=== PATIENT | female | born 1940 | race Caucasian/White ===

== ENCOUNTER 2016-10-31 06:15 | Day surgery (SDC) | payer OTHER ==
[2016-10-27 13:04] VITALS: BMI 28.3
--- NOTE | 2016-10-30 19:03 | HP ---
[facility] - Chief Complaint Chief Complaint: This patient is admitted for the investigation and removal of a uterine polyp. History of Present Illness: This patient c/o pelvic pain and was found to have a uterine polyp on sonogram examination. History Source: Patient - Past Medical History Allergies/Adverse Reactions: Allergies Allergy/AdvReac Type Severity Reaction Status Date / Time No Known Allergies Allergy Verified 10/27/16 13:04 REGISTERED NURSE PRACTITIONER: No: Alzheimer's, CVA, Dementia, Migraine, Multiple Sclerosis, Peripheral Neuropathy, Parkinson's, Seizure, Syncope, TIA, Vertigo, Other Cardiovascular: Yes: HTN, Hyperlipdemia. No: AFIB, Aneurysm, Aortic Insufficiency, Aortic Stenosis, CAD, CHF, Deep Vein Thrombosis, DE, Mitral Insufficiency, Mitral Stenosis, Murmur, Pulmonary Hypertension, Other Pulmonary: No: Asthma, Bronchitis, Cancer, COPD, O2 Dependent, Pneumonia, Previously Intubated, Pulmonary Embolus, Pulmonary Fibrosis, Sleep Apnea, Other Gastrointestinal: No: Ascites, Cancer, Constipation, Crohn's Disease, Diverticulitis, Diverticulosis, Esophageal Varices, Gastritis, GERD, GI Bleed, Hemorrhoids, Hiatal Hernia, Inflamatory Bowel Disease, Irritable Bowel Disease, Pancreatitis, Peptic Ulcer Disease, Ulcerative Colitis, Other Hepatobiliary: No: Cirrhosis, Cholelithiasis, Cholecystitis, Choledocholithiasis , Hepatitis A, Hepatitis B, Hepatitis C, Other Renal/: No: Renal Failure, Renal Inusuff, BPH, Cancer, Hematuria, Hemodialysis , Neurogenic Bladder, Renal Calculi, UTI, Other Reproductive: No: Ectopic , Endometriosis, Fibroids, PID, Polycystic Ovary Syndrome, Postmenopausal, Other ...: No ...: 3 ...Para: 3 Heme/Onc: No: Anemia, B12 Deficiency, Bleeding Disorder, Cancer, Current Chemotherapy, Current Radiation Therapy, Hemochromatosis, Hypercoaguable State, Myeloproliferative Synd, Sickle Cell Disease, Sickle Cell Trait, Thrombocytopenia, Other Infectious Disease: No: AIDS, C-Diff, Herpes Zoster, HIV, MRSA, STD's, Tuberculosis, VREF, Other Musculoskeletal: No: Bursitis, Chronic low back pain, Hemiparesis, Hemiplegia, Osteoarthritis, Paraplegia, Other Rheumatology: No: Fibromyalgia, Gout, Lupus, Rheumatoid Arthritis, Sarcoidosis, Vasculitis, Other ENT: No: Allergic Rhinitis, Sinusitis, Other Endocrine: No: Dominic's Disease, Megan's Disease, Diabetes Insipidus, Diabetes Mellitus, Hyperparathyroidism, Hyperthyroidism, Hypothyroidism, Osteopenia, SIADH, Other Dermatology: No: Basal Cell, Cellulitis, Eczema, Melanoma, Psoriasis, Squamous Cell, Other - Current Medications Current Medications: Home Medications Medication Instructions Recorded Amlodipine Besylate 5 mg PO DAILY 10/27/16 Aspirin [ASA -] 81 mg PO DAILY 10/27/16 Metoprolol Succinate [Toprol Xl] 50 mg PO HS 10/27/16 Simvastatin 40 mg PO HS 10/27/16 Valsartan 320 mg PO DAILY 10/27/16 Satellite Physical Exam - Physical Examination General Appearance: Well Nourished, Well Developed, Alert & Oriented x3 ENT: Clear, No Discharge, No masses Lung: Clear to auscultation Heart: Regular rate & rhythm, Normal S1, Normal S2 Breasts: Soft, Non-Tender, No masses bilaterally Abdomen: Soft, No tenderness, No CVA Extremities: No edema, No tenderness/swelling Pelvic Exam: Within normal limits External Genitalia, Within normal limits Vagina, Within normal limits Cervix, Within normal limits Uterus, Within normal limits [facility]: Intact, Alert, Oriented Satellite Impression/Plan - Impression/Plan Impression: polyp of uterus Operative Procedure: Hysteroscopy with polypectomy and D/C Date to be Performed: 10/31/16
[2016-10-31 06:33] VITALS: TEMP 97.7
[2016-10-31] MEDS ORDERED: PROPOFOL 20 ML ONE (07:21)
[2016-10-31] MEDS ORDERED: MIDAZOLAM HCL 2 MG/2 ML SINGLE DOSE VIAL ONE (07:21)
[2016-10-31] MEDS ORDERED: SUCCINYLCHOLINE CHLORIDE 200 MG/10 ML VIAL ONE (07:21)
[2016-10-31] MEDS ORDERED: DEXAMETHASONE SOD PHOSPHATE 4 MG/1 ML VIAL ONE (07:49)
[2016-10-31] MEDS ORDERED: KETOROLAC TROMETHAMINE 30 MG/1 ML VIAL ONE (07:57)
[2016-10-31] MEDS ORDERED: DESFLURANE GAS 240 ML BOTTLE IH ONE (08:05)
[2016-10-31] MEDS ORDERED: LACTATED RINGERS SOLUTION 1,000 ML IV SCH (08:15)
[2016-10-31] MEDS ORDERED: oxyCODONE HCL 5 MG TABLET PO PRN (08:15)
[2016-10-31] MEDS ORDERED: ONDANSETRON 4 MG/2 ML VIAL IVPUSH PRN (08:15)
[2016-10-31 10:55] VITALS: BP 149/73; PULSE 74
--- NOTE | 2016-10-31 16:21 | OP ---
DATE OF OPERATION: 10/31/2016 PREOPERATIVE DIAGNOSIS: Endometrial polyp. DESCRIPTION OF PROCEDURE: The patient was brought to the operating room, placed in the supine position, given fractional anesthesia by the crts, placed in the lithotomy position, prepped and draped in the usual sterile manner for D&C hysteroscopy. The patient was examined. Uterus was noted to be post menopausal in size and small post menopausal uterus, adnexa negative. The anterior lip of the cervix was grasped with a tenaculum after a speculum was placed into the vagina. The uterus was sounded to 2.5 inches. The cervix was dilated with Tyler dilators. A hysteroscopy was performed. The inside of the endometrium appeared atrophic. There were no signs of any fibroids or polyps. A D&C was carried out using a small curet. A small amount of tissue was obtained for analysis. The patient tolerated the procedure well. Hemostasis was excellent. The estimated blood loss was 2 mL. After this was accomplished, the patient was then transferred to the recovery room. The patient also had an ECC, endocervical curettage, and after that was done, the patient was then referred to the recovery room in good condition. Vital signs were stable. Hemostasis was good. JOSE HARRISON M.D. [id number]
--- NOTE | 2016-11-01 11:45 | PATH ---
Surgical Pathology Report Patient Name: CABRERA WANG [facility]. Rec. #: [id number] /Age/Gender: 1940 (Age: 75) / F Account: [id number] Location: [facility] SUR[facility]ICAL Taken: 10/31/2016 Received: 10/31/2016 Reported: 11/01/2016 Physicians: Sandip De La Torre M.D. Specimen(s) Received A: ENDOMETRIAL TISSUE B: ENDOCERVICAL TISSUE Clinical History Possible polyp Final Diagnosis A. ENDOMETRIAL TISSUE, CURETTAGE: ENDOMETRIAL POLYP. BACKGROUND SCANT FRAGMENTS OF ATROPHIC ENDOMETRIUM. B. ENDOCERVICAL TISSUE, CURETTAGE: FRAGMENTS OF BENIGN ENDOCERVICAL TISSUE. FRAGMENTS OF BENIGN SQUAMOUS EPITHELIUM. Electronically Signed Jamarcus Cloud M.D. Gross Description A. Received in formalin labeled "endometrial tissue" is a 0.6 x 0.5 x 0.1 cm aggregate of anderson-pink soft tissue fragments. The formalin is filtered and the specimen is entirely submitted in one cassette. B. Received in formalin labeled "endocervical tissue" is a 0.4 x 0.3 x 0.1 cm aggregate of anderson pink soft tissue fragments. The formalin is filtered and the specimen is entirely submitted in one cassette. /10/31/2016 saudi10/31/2016
== END 2016-10-31 10:57 | disposition home or self-care (01) ==
LOC: JASU-SURG 06:15
PROVIDERS: ATTEND Obstetrics & Gynecology
PROC: 0UDB8ZX Extraction of Endometrium, Via Natural or Artificial Opening Endoscopic, Diagnostic (ICD-10-PCS; principal; 2016-10-31 07:30)
DX: N84.0 Polyp of corpus uteri (principal)
CPT/HCPCS: 88305-TC; 94760

== ENCOUNTER 2023-01-11 11:14 | Emergency (ER) | payer OTHER ==
[2023-01-11 11:51] VITALS: BP 180/68; PULSE 73; RESP 16; TEMP 98.5; BMI 30.4
== END 2023-01-11 14:07 | disposition home or self-care (01) ==
LOC: FER 11:14
DX: S80.01XA Contusion of right knee, initial encounter (principal); S99.922A Unspecified injury of left foot, initial encounter; W01.0XXA Fall on same level from slipping, tripping and stumbling without subsequent striking against object, initial encounter
CPT/HCPCS: 73562-TC-RT-FY; 73610-TC-LT-FY; 73630-TC-LT; 73700-TC-RT; 99284-25

== ENCOUNTER 2023-10-05 04:19 | Day surgery (SDC) | payer OTHER ==
[2023-10-02 12:41] VITALS: BMI 29.0
[2023-10-05 09:40] VITALS: TEMP 97.8
[2023-10-05 10:10] VITALS: BP 110/65; PULSE 74; RESP 16
== END 2023-10-05 11:10 | disposition home or self-care (01) ==
LOC: JASU-ENDO 04:19
PROVIDERS: ATTEND Internal Medicine Gastroenterology
PROC: 0DB68ZX Excision of Stomach, Via Natural or Artificial Opening Endoscopic, Diagnostic (ICD-10-PCS; 2023-10-05)
PROC: 0DB78ZX Excision of Stomach, Pylorus, Via Natural or Artificial Opening Endoscopic, Diagnostic (ICD-10-PCS; 2023-10-05)
PROC: 0DBN8ZX Excision of Sigmoid Colon, Via Natural or Artificial Opening Endoscopic, Diagnostic (ICD-10-PCS; principal; 2023-10-05 08:30)
DX: Z12.11 Encounter for screening for malignant neoplasm of colon (principal); D12.7 Benign neoplasm of rectosigmoid junction; K29.50 Unspecified chronic gastritis without bleeding; B96.81 Helicobacter pylori [H. pylori] as the cause of diseases classified elsewhere
CPT/HCPCS: 88305-TC; 88342-TC